=== PATIENT | female | born 1940 | race Caucasian/White ===

== ENCOUNTER 2020-02-10 13:30 | Outpatient (CLI) | payer MEDICARE | END 2020-02-10 23:59 | disposition home or self-care (01) | LOC: CFH 13:30 | PROVIDERS: ATTEND Internal Medicine Cardiovascular Disease | DX: I08.3 Combined rheumatic disorders of mitral, aortic and tricuspid valves (principal); I71.9 Aortic aneurysm of unspecified site, without rupture | CPT/HCPCS: 93306; 93356 ==

== ENCOUNTER → 2021-01-09 | Outpatient (CLI) | payer MEDICARE | END | disposition home or self-care (01) | LOC: CFH 10:59 | PROVIDERS: ATTEND Internal Medicine Cardiovascular Disease | DX: I08.3 Combined rheumatic disorders of mitral, aortic and tricuspid valves (principal); I71.9 Aortic aneurysm of unspecified site, without rupture | CPT/HCPCS: 93306 ==